=== PATIENT | female | born 1985 ===

== ENCOUNTER 2017-06-29 13:26 | Emergency (ER) | payer MEDICAID ==
[2017-06-29 13:44] VITALS: BP 119/61; PULSE 90; RESP 18; TEMP 98.3; O2SAT 100
--- NOTE | 2017-06-29 14:21 | ED PDOC ---
HPI: CCC, URI, Sore Throat Time Seen by Provider: 06/29/17 13:56 Chief Complaint (Nursing): Fever History Per: Patient History/Exam Limitations: no limitations Onset/Duration Of Symptoms: Gradual (1 week) Location Of Pain: Throat Sick Contacts (Context): None Associated Symptoms: Sore Throat, Cough. denies: Fever, Chills, Sputum ( purulent with trace blood), Neck Pain, Myalgias, Nasal Congestion, Nausea, Vomiting, Diarrhea Ear Symptoms: Bilateral: None Severity: Mild Additional History Per: Patient Additional Complaint(s): Pt. complains of "on and off fever x 1 week, cough, congestion, throat pain and today started to spit up blood". no travel or sick contacts Past Medical History Reviewed: Historical Data, Nursing Documentation, Vital Signs Vital Signs: Last Vital Signs Temp 98.3 F 06/29/17 13:41 Pulse 90 06/29/17 13:41 Resp 18 06/29/17 13:41 BP 119/61 06/29/17 13:41 Pulse Ox 100 06/29/17 14:22 - Medical History PMH: Bipolar Disorder (at age 13), Depression, Schizophrenia (at age 13) Denies: Diabetes, Hepatitis, HIV, Seizures, Sexually Transmitted Disease Comment Only: HTN (pt says she had when she was younger) - Surgical History Surgical History: Tonsillectomy - Family History Family History: States: Unknown Family Hx - Living Arrangements Living Arrangements: With Family - Social History Current smoker - smoking cessation education provided: No - Home Medications Home Medications: Ambulatory Orders Medication Instructions Recorded LORazepam [Ativan] 0.5 mg PO Q8 PRN #6 tab 09/26/15 Albuterol HFA [Ventolin HFA 90 1 puff IH [id number] PRN #60 puff 06/29/17 mcg/actuation (8 g)] Azithromycin 250 mg PO DAILY #4 tab 06/29/17 - Allergies Allergies/Adverse Reactions: Allergies Allergy/AdvReac Type Severity Reaction Status Date / Time No Known Allergies Allergy Verified 09/26/15 21:02 Review of Systems ROS Statement: Except As Marked, All Systems Reviewed And Found Negative Constitutional: Negative for: Fever, Chills Cardiovascular: Negative for: Chest Pain, Palpitations Respiratory: Positive for: Cough, Sputum. Negative for: Shortness of Breath, SOB with Exertion, Pleuritic Pain Gastrointestinal: Negative for: Nausea, Vomiting, Abdominal Pain Neurological: Negative for: Weakness, Numbness Physical Exam - Reviewed Nursing Documentation Reviewed: Yes Vital Signs Reviewed: Yes - Physical Exam Head Exam: Positive for: ATRAUMATIC, NORMAL INSPECTION, NORMOCEPHALIC Eye Exam: Positive for: Normal appearance, EOMI, PERRL ENT: Positive for: Pharynx Is (clear,mmm). Negative for: Nasal Congestion, Pharyngeal Erythema, Tonsillar Exudate, Tonsillar Swelling Neck: Positive for: Normal, Painless ROM, Supple. Negative for: Decreased ROM, Limited ROM, Trachea Midline, Pain On Movement Of Neck Cardiovascular/Chest: Positive for: Regular Rate, Rhythm, Chest Non Tender. Negative for: Edema, Gallop, Murmur, Bradycardia, Tachycardia Respiratory: Positive for: Normal Breath Sounds. Negative for: Decreased Breath Sounds, Accessory Muscle Use, Crackles, Rales, Rhonchi, Stridor, Wheezing Pulses-Radial (L): 2+ Pulses-Radial (R): 2+ Gastrointestinal/Abdominal: Positive for: Normal Exam, Bowel Sounds, Soft. Negative for: Tenderness Back: Positive for: Normal Inspection. Negative for: L CVA Tenderness, R CVA Tenderness Extremity: Positive for: Normal ROM. 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 Negative for: Motor/Sensory Deficits, Aphasia, Facial Droop - ECG O2 Sat by Pulse Oximetry: 100 Pulse Ox Interpretation: Normal - Radiology X-Ray: Interpreted by [place] X-Ray Interpretation: No Acute Disease - Progress ED Course And Treament: advise z pack for bronchitis. advise close f/u in medical clinic. pt leaves ambulatory and in good spirits. Re-evaluation Time: 15:22 Condition: Improved Disposition - Clinical Impression Clinical Impression: Bronchitis - Patient ED Disposition Is Patient to be Admitted: No Counseled Patient/Family Regarding: Studies Performed, Diagnosis, Need For Followup, Rx Given - Disposition Referrals: [facility] [Outside] (2 to 3 days) Disposition: Routine/Home Disposition Time: 15:23 Condition: GOOD Prescriptions: Albuterol HFA [Ventolin HFA 90 mcg/actuation (8 g)] 1 puff IH [id number] PRN #60 puff PRN Reason: Cough Azithromycin 250 mg PO DAILY #4 tab Instructions: Acute Bronchitis (ED) Forms: [employer] (Sinhala)
--- NOTE | 2017-06-29 15:48 | RAD ---
HISTORY: Cough COMPARISON: 05/07/2015. TECHNIQUE: Chest PA and lateral FINDINGS: LUNGS: No active pulmonary disease. PLEURA: No significant pleural effusion identified. No pneumothorax apparent. CARDIOVASCULAR: Normal. OSSEOUS STRUCTURES: No significant abnormalities. VISUALIZED UPPER ABDOMEN: Normal. OTHER FINDINGS: None. IMPRESSION: No active disease. No significant interval change compared to the prior examination(s). Concordant results with the preliminary interpretation rendered by the emergency department physician procedure.
== END 2017-06-29 16:13 | disposition home or self-care (01) ==
LOC: H.ER 13:26
DX: J40 Bronchitis, not specified as acute or chronic (principal)

== ENCOUNTER 2017-10-06 15:16 | Emergency (ER) | payer MEDICAID, OTHER ==
[2017-10-06 16:02] VITALS: BP 134/85; PULSE 90; RESP 18; TEMP 99.3; O2SAT 100
--- NOTE | 2017-10-06 17:53 | ED PDOC ---
HPI: Abdomen Time Seen by Provider: 10/06/17 16:40 Chief Complaint (Nursing): Abdominal Pain Chief Complaint (Provider): Pelvic pain (right side) History Per: Patient History/Exam Limitations: no limitations Onset/Duration Of Symptoms: Days (1.5 months) Additional Complaint(s): Deyanira Todd is a 32 y/o female who presents to the emergency department with intermittent episodes of pelvic pain located on the right side for 1.5 months. Patient last had intercourse 4 days ago and is still in pain. Reports she immediately had pink discharge after intercourse with clear discharge for the following days. Associated with frequency and burning sensation while urinating. Her last visit to her OBGYN was 2 months ago and had a normal checkup with pap smear. Reports taking Tylenol and Motrin with minimal relief. Denies vomiting, diarrhea, nausea, and constipation. Of note, patient states she began having intercourse 1.5 months ago after 1 1/2 years of being abstinent with same pain from prior episodes. PMD: Dr. Jennifer Lucas MD Past Medical History Reviewed: Historical Data, Nursing Documentation, Vital Signs Vital Signs: Last Vital Signs Temp 99.3 F 10/06/17 16:00 Pulse 90 10/06/17 16:00 Resp 18 10/06/17 16:00 BP 134/85 10/06/17 16:00 Pulse Ox 100 10/06/17 20:25 - Medical History PMH: Bipolar Disorder (at age 13), Depression, Schizophrenia (at age 13) Denies: Diabetes, Hepatitis, HIV, Seizures, Sexually Transmitted Disease Comment Only: HTN (pt says she had when she was younger) - Surgical History Surgical History: Tonsillectomy - Family History Family History: States: Hypertension - Home Medications Home Medications: Ambulatory Orders Medication Instructions Recorded LORazepam [Ativan] 0.5 mg PO Q8 PRN #6 tab 09/26/15 Albuterol HFA [Ventolin HFA 90 1 puff IH [id number] PRN #60 puff 06/29/17 mcg/actuation (8 g)] Azithromycin 250 mg PO DAILY #4 tab 06/29/17 - Allergies Allergies/Adverse Reactions: Allergies Allergy/AdvReac Type Severity Reaction Status Date / Time No Known Allergies Allergy Verified 09/26/15 21:02 Review of Systems ROS Statement: Except As Marked, All Systems Reviewed And Found Negative Gastrointestinal: Negative for: Nausea, Vomiting, Diarrhea, Constipation Genitourinary Female: Positive for: Pelvic Pain (Right-sided) Physical Exam - Reviewed Nursing Documentation Reviewed: Yes Vital Signs Reviewed: Yes - Physical Exam Appears: Positive for: Non-toxic, No Acute Distress Head Exam: Positive for: ATRAUMATIC, NORMOCEPHALIC Skin: Positive for: Warm, Dry Eye Exam: Positive for: EOMI, PERRL ENT: Negative for: Pharyngeal Erythema, Tonsillar Exudate Neck: Positive for: Painless ROM, Supple Cardiovascular/Chest: Positive for: Regular Rate, Rhythm, Chest Non Tender. Negative for: Murmur Respiratory: Positive for: Normal Breath Sounds. Negative for: Wheezing Gastrointestinal/Abdominal: Positive for: Bowel Sounds, Soft, Tenderness (mild ttp deep pelvic). Negative for: Mass, Distended, Guarding, Rebound Pelvic Exam: Positive for: External Exam Normal, Speculum Exam Normal, No Cerv. Motion Tender, Tender Uterus. Negative for: Active Bleeding Back: Positive for: Normal Inspection. Negative for: Decreased ROM Extremity: Positive for: Normal ROM. Negative for: Deformity Lymphatic: Negative for: Adenopathy Neurologic/Psych: Positive for: Alert. Negative for: Motor/Sensory Deficits - Laboratory Results Result Diagrams: 10/06/17 18:13 - ECG O2 Sat by Pulse Oximetry: 100 (RA) Pulse Ox Interpretation: Normal Medical Decision Making Medical Decision Making: Time: 1652 Initial Impression: Pelvic pain. Differential diagnoses include, but not limited to urinary tract infection (UTI), ovarian cyst, ovarian fibroid, ovarian torsion, , and ectopic Initial plan: -Blood type and screen - Beta- HCG Quantitative -Drug screen urine -Ed urine and dipstick -CBC with differential - Chlamydia/ GC RNA - Tylenol 975 mg PO - Iv insertion - OB transvaginal Ultrasound Urine : Positive Time: 1805 Blood Bank Tests: B positive Time: 1824 --Transvaginal US FINDINGS: UTERUS: Measures 6.4 x 2.6 x 4.0 cm. Anteverted. ENDOMETRIUM: Measures 6 mm in diameter. CERVIX: Tiny nabothian cysts. Indeterminate tiny scattered echogenic foci. RIGHT OVARY: Measures 2.0 x 1.0 x 1.4 cm. Blood flow is demonstrated. LEFT OVARY: Measures 3.1 x 1.5 x 1.7 cm. Blood flow is demonstrated. FREE FLUID: No significant free fluid noted. OTHER FINDINGS: None. IMPRESSION: No evidence of intrauterine gestational sac. If indeed the patient is based on serum beta HCG values, the sonographic findings represent either: Very early IUP; embryonic demise; ectopic gestation. Follow-up with serial quantitative serum beta HCG measurements and post OBGYN follow-up as clinically indicated, since ectopic gestation cannot be excluded based only on sonographic findings. Tiny nabothian cysts. Indeterminate tiny scattered cervical echogenic foci, possibly small foci of air or fat. Time: 1812 -Beta HCG, Quantitative: <2.39 DW pt findings. Pt reports when she was 15 she had positive urine but her blood test was negative. At that time was hospitalized and had inpatient workup, but everything was fine. Repeat urine hcg also demonstrates positive . Stable for dc with mandatory OB follow up. Scribe Attestation: Documented by Lea Dudley, acting as a scribe for Bren Belle MD. Provider Scribe Attestation: All medical record entries made by the Scribe were at my direction and personally dictated by me. I have reviewed the chart and agree that the record accurately reflects my personal performance of the history, physical exam, medical decision making, and the department course for this patient. I have also personally directed, reviewed, and agree with the discharge instructions and disposition. 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 Take motrin or tylenol for pain. Avoid sexual activity until you see the drill rig operator. Instructions: Pelvic Pain in Women (ED) Forms: [facility] ED School/Work Excuse
[2017-10-06 18:18] LABS: BASO # 0.1 K/uL (0.0-0.2); BASO % 0.6 % (0.0-2.0); EOS # 0.1 K/uL (0.0-0.7); EOS % 0.8 % (0.0-4.0); LYMPH # 2.4 K/uL (1.0-4.3); LYMPH % 26.6 % (20.0-40.0); MEAN CORPUSCULAR HEMOGLOBIN 28.4 pg (27.0-31.0); MEAN CORPUSCULAR HGB CONC 32.2 g/dL (33.0-37.0); MONO # 0.8 K/uL (0.0-0.8); MONO % 8.7 % (0.0-10.0); NEUT # 5.6 K/uL (1.8-7.0); NEUT % 63.3 % (50.0-75.0); RED CELL DISTRIBUTION WIDTH 15.3 % (11.5-14.5); WHITE BLOOD COUNT 8.9 K/uL (4.8-10.8)
--- NOTE | 2017-10-06 19:05 | US ---
HISTORY: Pelvic pain early preg COMPARISON: None available. TECHNIQUE: Transvaginal pelvic ultrasound FINDINGS: UTERUS: Measures 6.4 x 2.6 x 4.0 cm. Anteverted. ENDOMETRIUM: Measures 6 mm in diameter. CERVIX: Tiny nabothian cysts. Indeterminate tiny scattered echogenic foci. RIGHT OVARY: Measures 2.0 x 1.0 x 1.4 cm. Blood flow is demonstrated. LEFT OVARY: Measures 3.1 x 1.5 x 1.7 cm. Blood flow is demonstrated. FREE FLUID: No significant free fluid noted. OTHER FINDINGS: None. IMPRESSION: No evidence of intrauterine gestational sac. If indeed the patient is based on serum beta HCG values, the sonographic findings represent either: Very early IUP; embryonic demise; ectopic gestation. Follow-up with serial quantitative serum beta HCG measurements and post OBGYN follow-up as clinically indicated, since ectopic gestation cannot be excluded based only on sonographic findings. Tiny nabothian cysts. Indeterminate tiny scattered cervical echogenic foci, possibly small foci of air or fat.
== END 2017-10-07 10:44 | disposition home or self-care (01) ==
LOC: H.ER 15:16
DX: R10.2 Pelvic and perineal pain (principal); Z36.9 Encounter for antenatal screening, unspecified; F20.9 Schizophrenia, unspecified; F31.9 Bipolar disorder, unspecified; I10 Essential (primary) hypertension